=== PATIENT | female | born 2005 | race Caucasian/White ===

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

== ENCOUNTER 2025-07-11 09:56 | Emergency (ER) | payer BC, OTHER ==
[~2025-07-11] VITALS: Ht 167.6 cm; Wt 54.4 kg
[~2025-07-11 09:56] MED LIST changes: +'CLONIDINE0.1 MG PO; +CITALOPRAM40 MG PO
[2025-07-11] MEDS ORDERED: AMPHETAMINE SAL15 M1 PO (10:35)
[2025-07-11] MEDS ORDERED: LAMOTRIGINE100 MG PO (10:35)
[2025-07-11] MEDS ORDERED: Ondansetron Hydrochloride 4 MG/2 ML VIAL IV ONE ×2 (10:45→12:10)
[2025-07-11] MEDS ORDERED: SODIUM CHLORIDE 0.9% 1,000 ML IV ONE (10:45)
[2025-07-11 10:57] LABS: BASO # 0.0 10*3/uL (0.0-0.1); BASO % 0.3 % (0.0-1.0); EOS # 0.0 10*3/uL (0.0-0.4); EOS % 0.2 % (1.0-4.0); MEAN CELL VOLUME 84.9 fl (81.0-99.0); MEAN CORPUSCULAR HGB 28.4 pg (27.0-31.0); MEAN PLATELET VOLUME 10.2 fl (9.6-12.3); MONO # 0.4 10*3/uL (0.1-1.0); MONO % 4.1 % (3.0-9.0); NEUT # 8.5 10*3/uL (2.3-7.9); NEUT % 80.7 % (47.0-73.0); NUCLEATED RED BLOOD CELL 0.0 % (0.0-0.0); NUCLEATED RED BLOOD CELL 0.0 10*3/uL (0.0-0.0); PLATELET COUNT AUTOMATED 217 10*3/uL (130-400); RED CELL DISTRI WIDTH 12.8 % (0-14.5)
[2025-07-11 11:36] LABS: BILIRUBIN Negative (Negative); BLOOD 2+ (Negative); CLARITY Clear (Clear); COLOR Yellow (Yellow); KETONE 4+ (Negative); LEUKO ESTERASE 1+ (Negative); NITRITE Negative (Negative); PH 7.5 (4.5-8.0); SPECIFIC GRAVITY >= 1.030 (1.001-1.030); UROBILINOGEN 1.0 E.U./dl (0.0-1.0)
[2025-07-11 11:46] LABS: BACTERIA 3+; EPITHELIAL CELLS 21-30; MUCOUS 3+; RBC 16-20 rbc/hpf (0-2)
[2025-07-11 11:50] LABS: BUN 8 mg/dl (9-23); SGPT/ALT 24 U/L (5-49)
[2025-07-11] MEDS ORDERED: HYDROmorphONE Hydrochloride 0.5 MG/0.5 ML SYRINGE IV ONE (12:10)
[2025-07-11] MEDS ORDERED: TRAMADOL HCL50 MG PO (12:13)
[2025-07-11] MEDS ORDERED: Ondansetron4 MG PO (12:13)
== END 2025-07-11 12:42 | disposition home or self-care (01) ==
LOC: ED 09:56
PROVIDERS: Emergency Medicine
DX: A08.4 Viral intestinal infection, unspecified (principal); R10.13 Epigastric pain; F90.9 Attention-deficit hyperactivity disorder, unspecified type; F31.9 Bipolar disorder, unspecified; Z88.8 Allergy status to other drugs, medicaments and biological substances